=== PATIENT | male | born 1970 | race Caucasian/White ===

== ENCOUNTER 2019-09-16 11:38 | Observation (INO) ==
[2019-09-16 13:48] LABS: Basophils # 0.1 10*3/uL (0.0-0.2); Basophils % 0.5 % (0.0-0.8); Eosinophils # 0.1 10*3/uL (0.0-0.87); Eosinophils % 0.8 % (0.00-10.9); Hematocrit 47.3 VOL% (42.0-52.0); Hemoglobin 16.2 GM/DL (14.0-18.0); Immature Granulocytes % 0.2 %; Immature Granulocytes Absolute 0.02 #; Lymphocytes # 1.8 10*3/uL (1.4-4.0); Lymphocytes % 17.7 % (21.2-54.2); Mean Corpuscular HGB Conc 34.2 GM/DL (32-36); Mean Corpuscular Volume 89.2 FL (87-102); Mean Platelet Volume 10.8 FL (9.6-12.0); Monocytes % 8.8 % (1.7-12.7); Platelet Count 177 T/CUMM (130-400); Red Cell Distribution Width 13.2 % (9.3-17.3); White Blood Count 10.4 T/CUMM (4-12)
[2019-09-16 14:11] LABS: Albumin 4.2 G/DL (3.4-5.0); Bilirubin,Total 1.2 MG/DL (0.2-1.0); Calcium 8.7 MG/DL (8.5-10.1); Osmolality,Calculated 283.1 MOS/KG (273-304); Total Protein 7.2 G/DL (6.4-8.3)
[2019-09-16] MEDS ORDERED: HYDROmorphone 2 MG/1 ML VIAL IV STA (14:11)
[2019-09-16] MEDS ORDERED: ONDANSETRON 4 MG/2 ML VIAL IV STA (14:11)
[2019-09-16] MEDS: LACTATED RINGERS 1,000 ML IV SCH ×2 (15:45→20:34)
[2019-09-16] MEDS ORDERED: ROPIVACAINE 0.5% 30 ML VIAL ONE (16:10)
[2019-09-16] MEDS ORDERED: MIDAZOLAM 2 MG/2 ML VIAL ONE ×2 (16:11→20:22)
[2019-09-16] MEDS ORDERED: ceFAZolin 1,000 MG VIAL ONE (18:23)
[2019-09-16] MEDS ORDERED: SEVOFLURANE 1 UNIT/15 MINUTE INH ONE (20:22)
[2019-09-16] MEDS ORDERED: fentaNYL 100 MCG/2 ML VIAL ONE (20:22)
[2019-09-16] MEDS ORDERED: propofoL 200 MG/20 ML VIAL IV ONE (20:23)
[2019-09-16] MEDS ORDERED: LIDOCAINE 2% 5 ML VIAL ONE (20:23)
[2019-09-16] MEDS ORDERED: PHENYLEPHRINE 1 MG/10 ML SYRINGE IV ONE (20:23)
[2019-09-16] MEDS ORDERED: ROCURONIUM 100 MG/10 ML VIAL IV ONE (20:23)
[2019-09-16] MEDS ORDERED: ONDANSETRON 4 MG/2 ML VIAL ONE (20:23)
[2019-09-16] MEDS ORDERED: LACTATED RINGERS 1,000 ML IV ONE (20:23)
[2019-09-16] MEDS ORDERED: DEXAMETHASONE 4 MG/1 ML VIAL ONE (20:23)
[2019-09-17] MEDS ORDERED: PROMETHAZINE 25 MG/1 ML VIAL IM PRN (05:12)
[2019-09-17] MEDS: MORPHINE 4 MG/1 ML VIAL IV PRN ×2 (05:40→09:03)
[2019-09-17 07:43] VITALS: BP 153/86
[2019-09-17] MEDS ORDERED: MORPHINE 4 MG/1 ML VIAL IV ONE (08:52)
== END 2019-09-17 10:50 | disposition home or self-care (01) ==
LOC: N.EDINP 11:38 → N.ED 11:38 → N.3E 17:39
PROVIDERS: ADMIT Orthopaedic Surgery; ATTEND Orthopaedic Surgery